=== PATIENT | female | born 1970 | race Caucasian/White ===

== ENCOUNTER 2019-04-24 13:14 | Inpatient (IN) ==
--- NOTE | 2019-04-24 13:54 | Diag Imaging Result Doc PS360 ---
EXAM: CHEST-2 VIEWS 04/24/2019 HISTORY: couging up blood TECHNIQUE: PA and lateral chest COMMENT: There are what appear to be coils present in the area of the superior segment of the right lower lobe. Compared to 05/30/2018 there appear to be more of these coils or the the coils have unwound somewhat since the previous study. They were not present at the time the previous study of 03/19/2018. There is volume loss and opacity near the coils in the posterior portion of the right lower lobe which is similar in appearance to the previous studies. There is some thickening of the minor fissure and blunting of the right costophrenic angle which may be due to fibrosis. The heart size and pulmonary vascularity are within normal limits. The inspiration does not appear to be as optimal as on the previous study of 07/14/2018. 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 The appearance of the coils is somewhat different but otherwise the chest has not changed significantly in appearance since 07/14/2018. Electronically signed by Puma Brown 04/24/2019 1:52 PM
[2019-04-24] MEDS ORDERED: ROCEPHIN 1 GM in NS 50 ML IV ONE (14:14)
[2019-04-24 15:48] LABS: BASO# 0.03 X1000 (0.0-0.2); BASO% 0.4 % (0.0-0.8); EOS# 0.09 X1000 (0.0-0.7); EOS% 1.2 % (0.0-10.0); HEMATOCRIT 31.7 % (37.0-47.0); HEMOGLOBIN 10.2 g/dL (12.0-16.0); MCH 32.4 PG (27-31); MCHC 32.2 g/dL (33-37); MCV 100.6 FL (81-99); MONO% 8.2 % (1.7-9.3); MPV 10.3 FL (7.4-10.4); NEUT# 5.53 X1000 (1.4-6.5); NEUT% 75.2 % (42.2-75.2); PLT 246 X1000 (130-400); RBC 3.15 XMIL (4.2-5.4); RDW 12.7 % (11.5-14.5); WBC 7.35 X1000 (4.8-10.8)
[2019-04-24 16:00] LABS: INR 0.96; PROTIME 12.9 Seconds (11.0-16.0)
[2019-04-24 16:01] LABS: PTT 32.9 Seconds (22.3-41.8)
[2019-04-24 16:04] LABS: AGAP 14; BUN 5 mg/dL (8-22); CALCIUM 8.8 mg/dL (8.8-10.2); CHLORIDE 93 mmol/L (98-107); COSMO 263; CREATININE 0.6 mg/dL (0.5-0.9); ESTIMATED GFR > 60; GLUCOSE 85 mg/dL (70-104); POTASSIUM 4.9 mmol/L (3.5-5.1); SODIUM 133 mmol/L (136-145); TCO2 26 mmol/L (25-35)
[2019-04-24] MEDS ORDERED: MORPHINE IV ONE (16:17)
[2019-04-24] MEDS ORDERED: NS 1,000 ML IV ONE (16:17)
[2019-04-24] MEDS ORDERED: ZOFRAN IV ONE (16:17)
--- NOTE | 2019-04-24 17:04 | Diag Imaging Result Doc PS360 ---
EXAM: CT ANGIOGRM PULMONARY ARTERIES 04/24/2019 HISTORY: h/o of aneurysm and hemoptysis TECHNIQUE: This exam was performed using automated exposure control, adjustment of mA or kV according to patient size, and/or use of iterative reconstruction technique. COMMENT: The current study is compared with the previous contrast examination of 05/02/2018 and the noncontrast study of 06/20/2018. 3-D MIPS were performed. There is considerable metallic artifact from the intravascular coils present in the right lower lobe. There does appear to be a relatively prominent pulmonary arterial branch near the coils. This was also the case on the previous study of 05/02/2018. There is pleural thickening with some calcification posteriorly. There is a small amount of fluid loculated in the posterior costophrenic sulcus which was also present on the previous studies. The degree of consolidation in the superior segment of the lower lobe is slightly worse there is greater opacification of the segmental bronchus in the consolidated portion of the superior segment. There is a nodule in the right middle lobe on image 71 which was not apparently present at the time the previous study. This measures 6 mm in diameter. There are some coarse linear opacities in the posterior costophrenic sulcus of the left lower lobe which have not changed in appearance. Some of the opacities present on 06/20/2018 and the left lung have resolved. There is a groundglass opacity in the anterior left upper lobe on image 40 which was not previously present. The regional skeleton appears to be stable. There is some right paratracheal adenopathy which was also present at the time the previous study of 06/20/2018. This has not apparently changed. IMPRESSION: Worsened consolidation in the superior segment of the right lower lobe. It is unclear if this is a cause or result of the hemoptysis in the history. No evidence of pulmonary emboli is present. New right middle lobe nodule. Questionable pneumonia in the left upper lobe. Electronically signed by Puma Brown 04/24/2019 5:01 PM
[2019-04-24] MEDS ORDERED: ROCEPHIN ONE (18:51)
[2019-04-24] MEDS ORDERED: NS 50 ML ONE (18:51)
--- NOTE | 2019-04-24 19:04 | PROVIDER DOCUMENTATION ---
This chart was entered by Annette Dill Scribe, acting as scribe for Lars Quinones MD. HPI-General Adult - General Chief Complaint: Cough Stated Complaint: COUGHING UP BLOOD Time Seen by Provider: 04/24/19 13:51 Source: patient, family () Allergies/Adverse Reactions: Patient Allergies Allergy/AdvReac Type Severity Reaction Status Date / Time No Known Allergies Allergy Verified 04/24/19 13:22 Home Medications: Home Medication List Medication Instructions Recorded Confirmed Last Taken Type Albuterol Sulfate Inhaler 2 puff INH Q6H PRN PRN #1 inhaler 05/30/18 04/24/19 04/24/19 Rx [Ventolin Hfa] Hydrochlorothiazide 12.5 mg PO DAILY #14 tab 07/14/18 04/24/19 04/24/19 Rx Pantoprazole [Protonix] 40 mg PO DAILY@0700 04/24/19 04/24/19 04/24/19 History Potassium 99 mg PO DAILY 04/24/19 04/24/19 04/24/19 History - History of Present Illness -Gen Adult Nature of Presenting Problems: [id number] presents to the ed with c/o worsening sx of coughing blood and rt lateral lung pain. pt sts has had sx in the past as far back as February [address] peters at the [facility] . pt sts last 3 days sx have worsened and has noted subjective fever as well. pton exam is nontoxic in appearance Location of Pain/Injury: reports: chest (lung pain) Quality of Pain: reports: pressure Severity: reports: moderate Onset/Duration: reports: other (02/2018) Timing: reports: still present, intermittent, getting worse Context/Activities at Onset: reports: light activity Modifying Factors: improves with: nothing. worse with: coughing Associated Symptoms: reports: chest pain (lung pain), cough, fever/chills (subjective), nausea. denies: back/neck pain, shortness of breath, vomiting Similar Symptoms Previously?: Yes Recently seen or treated by another doctor?: Yes (dr peters at [facility]) Review of Systems - Adult - REVIEW OF SYSTEMS - ADULT Constitutional: reports: see HPI, chills, fever Eyes: reports: no symptoms reported Ears, Nose, Mouth & Throat: reports: no symptoms reported Cardiovascular: reports: see HPI, chest pain (lung pain rt side). denies: palpitations, syncope Respiratory: reports: see HPI, cough, excessive sputum production (bloody). denies: shortness of breath, wheezing Gastrointestinal: reports: nausea. denies: abdominal pain, diarrhea, vomiting Genitourinary: reports: no symptoms reported Musculoskeletal: denies: back pain, neck pain Integumentary: reports: no symptoms reported Neurological: reports: no symptoms reported Psychiatric: reports: no symptoms reported Endocrine: reports: no symptoms reported Hematologic/Lymphatic: reports: no symptoms reported Allergic/Immunologic: reports: no symptoms reported All Other Systems: Reviewed and Negative Past History - Adult - PAST MEDICAL HISTORY-ADULT Review of Records: reports: Old Records Reviewed, Nursing Assessment Review, Medications Reviewed, Social history reviewed & non-contributory. Major Childhood Illnesses: reports: denies history Cardiovascular: reports: denies history Respiratory: reports: pneumonia, other (lung issues on rt lung) Gastrointestinal: reports: denies history Obstetrical/Gynecological: reports: denies history Genitourinary: reports: denies history Musculoskeletal: reports: denies history Neurological: reports: denies history Endocrine/Immune: reports: denies history Other Conditions: reports: denies history - PRIOR SURGERIES/PROCEDURES Surgical/Procedure History: reports: hysterectomy, BTL, - IMMUNIZATION STATUS Childhood Immunizations: See Nurse Assessment Flu Vaccine: See Nurse Assessment - FAMILY HISTORY Family History: reviewed, not pertinent - SOCIAL HISTORY Smoking: quit greater than 1 year Substance Use: alcohol Alcohol Use Frequency: occasionally Number of drinks per typical drinking period:: 3-4 drinks Living Situation: family Physical Exam-General - PHYSICAL EXAM-ADULT Initial Vital Signs Reviewed: Yes - CONSTITUTIONAL General Appearance: appears well, alert, no apparent distress, obese - EYES Eyes: PERRL/EOMI, pink conjunctivae - HEAD, EARS, NOSE, MOUTH & THROAT HENMT: moist mucous membranes - NECK Neck: non-tender, full range of motion, supple, normal inspection - RESPIRATORY Respiratory: chest non-tender, lungs clear, normal breath sounds - CARDIOVASCULAR Cardiovascular: normal peripheral pulses, regular rate, rhythm - CHEST (BREASTS) Chest/Breast: deferred - GASTROINTESTINAL (ABDOMEN) Abdominal Exam: normal bowel sounds, non tender, soft - LYMPHATIC Lymphatic: no adenopathy - MUSCULOSKELETAL Back Exam: no CVA tenderness, no vertebral tenderness Extremity: normal range of motion, non-tender, normal gait, normal inspection - SKIN Integumentary: normal color, normal turgor, warm/dry - NEUROLOGIC Neurologic: grossly normal - PSYCHIATRIC Psych/Mental Status: normal mood/affect, normal thought content, normal thought process, oriented x 3 Progress - PLAN OF CARE/RESULTS Progress/Plan/Lab Results: Vital Signs - 8 hr 04/24/19 13:18 Temperature 99.2 F Pulse Rate 87 Respiratory Rate 20 Blood Pressure 189/100 O2 Sat by Pulse Oximetry 100 Orders Category Date Time Status CHEST-2 VIEWS [RAD] Stat Exams 04/24/19 13:23 Completed hopsitalist spoke with rosanne [address] will admit pt to dr mcpherson Result Diagrams: 04/24/19 15:06 04/24/19 15:06 - REASSESSMENT Reassessment #1 Time Reassessed: 15:18 Status: unchanged (dr drake [facility] and pt still presents with sx) - XRAY 1 XRAY: Bilateral XRAY Study: Chest Impression: See EMR Report (EXAM: CHEST-2 VIEWS 04/24/2019 HISTORY: couging up blood TECHNIQUE: PA and lateral chest COMMENT: There are what appear to be coils present in the area of the superior segment of the right lower lobe. Compared to 05/30/2018 there appear to be more of these coils or the the coils have unwound somewhat since the previous study. They were not present at the time the previous study of 03/19/2018. There is volume loss and opacity near the coils in the posterior portion of the right lower lobe which is similar in appearance to the previous studies. There is some thickening of the minor fissure and blunting of the right costophrenic angle which may be due to fibrosis. The heart size and pulmonary vascularity are within normal limits. The inspiration does not appear to be as optimal as on the previous study of 07/14/2018. 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 The appearance of the coils is somewhat different but otherwise the chest has not changed significantly in appearance since 07/14/2018. Electronically signed by Puma Brown 04/24/2019 1:52 PM 04/24/19 1352 Interpreting Physician: Puma Brown MD Dictated Date/Time: 04/24/19 1344 cc: Lars Quinones MD; Jamey Pichardo Jr, MD) - CONSULTS/PCP/HOSPITALIST Notification #1 *Consult/PCP/Hospitalist*: dr peters @ [facility] Time Discussed: 14:22 Reason/Comments: phone consult #2 Consult: dr peters [facility] Time Discussed: 15:13 Reason/Comments: will not accept pt [facility] is on divert #3 Consult: dr vazquez pulmonology Time Discussed: 15:38 Reason/Comments: phone consult Departure - Departure Date of Disposition Decision: 04/24/19 Time of Disposition Decision: 16:18 DIAGNOSIS: Hemoptysis Lung abscess Qualifiers: Pulmonary abscess pneumonia presence: without pneumonia Laterality: unspecified laterality Qualified Code(s): J85.2 - Abscess of lung without pneumonia Disposition: ADMITTED INPATIENT 09 Certified Medical Emergency: Emergent Condition: Stable Referrals and Follow-Ups: Jamey Pichardo Jr, MD [Primary Care Provider] - - Critical Care Note This patient required my direct & personal management of CC.: No Attestation - Physician/ ALLAN Attestation Patient care was provided by Advanced Practice Provider:: No The physician spent face to face time with patient:: Yes Advanced Practice Provider documentation review:: Supervising physician onsite and consulted in the evaluation and care of this patient. The physician did have a face to face encounter with the patient. This chart was documented by the indicated scribe, (Annette Dill Scribe) and accurately reflects the services I performed and decisions made by me, Lars Quinones MD, as attested by the provider's signature.
[2019-04-24] MEDS: DUONEB (A & A) INH SCH ×2 (20:15→23:19)
[2019-04-24] MEDS ORDERED: DUONEB (A & A) INH PRN (20:15)
[2019-04-24] MEDS ORDERED: VANCOMYCIN IV PER PHARMACY MISC SCH (20:15)
--- NOTE | 2019-04-24 21:15 | HISTORY AND PHYSICAL ---
PRIMARY CARE PROVIDER: Gerald Pichardo MD. Pull Worker is in [place]. CHIEF COMPLAINT: Hemoptysis, fever and cough. 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 She had an embolization and coils placed at a [facility] in March 2018. Other past medical history of hypertension, alcohol use, and ex-tobacco use. She reports over the last couple days she was not feeling well. She had been sick in her stomach. She reported a fever of 100.3 yesterday and has been more short of breath over the past 2 to 3 days than usual. She has had some nausea but no vomiting or diarrhea. She reports or around 10 a.m. this morning she started coughing up some blood. She has had some intermittent episodes over this past year. However, they were mixed in with her sputum production. This time they were just malathi red blood, guesstimate about 100 mL in her cup so far, so she can't in the ED to be evaluated because it did not resolve on its own. Workup so far unofficially been benign. It does show coils in the right lower lobe. They appear to be somewhat unwound from previous study. There is no pneumonia, no white count. She did have a low-grade fever at 99. The ED physician did speak with her setter induction heating equipment at [facility]. They did initially accept her. They called hospitalist for admission. They would not speak to them because they were on diversion. He then spoke with Dr. Vargas, who said that we could see the patient here. We will admit her inpatient status and watch her closely overnight in the ICU given the amount of hemoptysis she continues to spit up. We will check a CTA of the chest to rule out any aneurysm or abscess and look for pneumonia. Go ahead and treat her with vancomycin and Zosyn empirically and will hold her blood pressure medicines overnight in case of any emergent bleeding. PAST MEDICAL HISTORY: Per HPI. PAST SURGICAL HISTORY: 1. Coiling and embolization of the right lower lobe secondary to an abscess and aneurysm. 2. section. 3. Bilateral tubal ligation. SOCIAL HISTORY: She quit smoking over a year ago and she drinks occasionally 2 to 3 times await 1 to 2 beers. FAMILY HISTORY: A mother with breast cancer. Father with Alzheimer's dementia and a stroke in the 90s. ALLERGIES: No known drug allergies. HOME MEDICATIONS: 1. Ventolin inhaler 2 puffs inhaled q.6 hours p.r.n. cough or wheezing. 2. Hydrochlorothiazide 12.5 mg p.o. daily. 3. Protonix 40 mg p.o. daily. 4. Potassium 99 mg p.o. daily. REVIEW OF SYSTEMS: Twelve point review of systems completely negative except for those mentioned in HPI. PHYSICAL EXAM: VITAL SIGNS: Temperature is #2, heart rate 87 respirations 20, blood pressure 189/100. O2 is 100% on room air. GENERAL: Ms. Woodard is a 49-year-old female who is sitting on the side of the bed. She appears somewhat anxious but in no acute distress. HEENT: Atraumatic, normocephalic. PERRL. NECK: Is supple. Trachea midline. CV: S1, S2 appreciated. No murmurs, gallops, rubs noted. RESPIRATORY: Lung sounds decreased throughout lung [place]. GI: Soft, nontender, nondistended. Positive bowel sounds four quadrants. EXTREMITIES: Lower extremities negative or edema. NEURO: No focal deficits noted. DIAGNOSTIC DATA: Chest x-ray coils in the right lower lobe presumed to be on the basis of embolism of previously demonstrated aneurysms secondary to lung abscess. The appearance of the coils is somewhat different, but otherwise the chest has not changed significantly in appearance since 07/14/2018. Pending CTA of the chest. LABORATORY DATA: White count 7, hemoglobin 10 and hematocrit 31, platelet count is 246,000. Sodium 133, potassium 4.9, BUN 5, creatinine 0.6, blood glucose is 80. ASSESSMENT AND PLAN: 1. Gross hemoptysis. We will rule the patient out for lung abscess as well as aneurysm with CTA along with any pneumonia. We will empirically start her on IV antibiotics. Will watch her closely in the ICU. Consult Dr. Vargas with pulmonology. Her H H is currently stable. Vital signs are stable. 2. Hypertension. We are going to hold blood pressure medications overnight. 3. 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 Aware. 4. Further recommendations to follow physician evaluation, laboratory and diagnostic data. Dictated by MIGEL Monroe for Uriel Vincent MD cc: Luis Vargas MD Patient with fairly significant hemoptysis. rales in Right lower lung on exam. will get CT scan to try and get a better look. start on empiric antibitics for likely pneumonia vs abscess. if hemoptysis fails to improve then may need transfer to [facility] or [place]. RODRIGUED
[2019-04-24] MEDS ORDERED: VANCOMYCIN 1,700 MG in NS 250 ML IV ONE (21:30)
[2019-04-24] MEDS: TYLENOL PO PRN (22:29)
[2019-04-24] MEDS: TESSALON PO PRN (22:30)
[2019-04-25] MEDS: MORPHINE IV PRN ×4 (01:26→20:55)
[2019-04-25] MEDS: ZOFRAN IV PRN ×3 (01:26→20:55)
[2019-04-25] MEDS: ZOSYN 3.375 GM in NS 50 ML IV SCH ×4 (01:37→20:55)
[2019-04-25] MEDS: DUONEB (A & A) INH SCH ×6 (03:35→22:32)
[2019-04-25] MEDS: TYLENOL PO PRN ×3 (04:59→21:46)
[2019-04-25] MEDS: TESSALON PO PRN ×3 (04:59→20:56)
[2019-04-25 06:54] LABS: BASO# 0.03 X1000 (0.0-0.2); BASO% 0.3 % (0.0-0.8); EOS# 0.01 X1000 (0.0-0.7); EOS% 0.1 % (0.0-10.0); HEMATOCRIT 28.6 % (37.0-47.0); HEMOGLOBIN 9.3 g/dL (12.0-16.0); IMM GRAN# 0.02 X1000 (0.0-0.04); IMM GRAN% 0.2 % (0.0-0.5); LYMPH# 0.96 X1000 (1.2-3.4); LYMPH% 9.1 % (20.5-51.1); MCH 32.7 PG (27-31); MCHC 32.5 g/dL (33-37); MCV 100.7 FL (81-99); MONO# 1.04 X1000 (0.11-0.59); MONO% 9.9 % (1.7-9.3); MPV 10.1 FL (7.4-10.4); NEUT# 8.49 X1000 (1.4-6.5); NEUT% 80.4 % (42.2-75.2); PLT 214 X1000 (130-400); RBC 2.84 XMIL (4.2-5.4); WBC 10.55 X1000 (4.8-10.8)
--- NOTE | 2019-04-25 07:03 | Diag Imaging Result Doc PS360 ---
EXAM: CHEST-PORTABLE HISTORY: Pneumonia TECHNIQUE: Single view COMPARISON: 04/24/2019 FINDINGS: The lungs are well expanded. The heart is not enlarged. The vessels are not distended. There are right basilar infiltrates. No effusion identified. IMPRESSION: Persistent right lower lobe pneumonia. Electronically signed by Amol Fernandez 04/25/2019 7:01 AM
[2019-04-25 07:28] LABS: AGAP 15; ALB/GLOB RATIO 1.1; ALBUMIN 3.4 g/dL (3.5-5.0); ALKALINE PHOSPHATASE 115 U/L (32-104); BUN 6 mg/dL (8-22); CALCIUM 8.4 mg/dL (8.8-10.2); CHLORIDE 94 mmol/L (98-107); COSMO 264; CREATININE 0.7 mg/dL (0.5-0.9); ESTIMATED GFR > 60; GLUCOSE 125 mg/dL (70-104); GOT 42 U/L (10-30); GPT 26 U/L (10-36); POTASSIUM 3.3 mmol/L (3.5-5.1); SODIUM 132 mmol/L (136-145); TCO2 23 mmol/L (25-35); TOTAL BILIRUBIN 0.58 mg/dL (0.20-1.00); TOTAL PROTEIN 6.5 g/dL (6.3-8.3)
[2019-04-25] MEDS: PROTONIX PO SCH (08:51)
[2019-04-25] MEDS: VANCOMYCIN 1,300 MG in NS 250 ML IV SCH ×2 (10:06→21:47)
[2019-04-25 13:10] LABS: HEMATOCRIT 27.6 % (37.0-47.0); HEMOGLOBIN 8.7 g/dL (12.0-16.0)
--- NOTE | 2019-04-25 18:46 | PROGRESS NOTE ---
DATE: 04/25/2019 INTERVAL HISTORY: Patient still with hemoptysis, although it appears to be slowing down in amount and frequency. Still no dyspnea. No vomiting. Afebrile. No new complaints. No other acute events. REVIEW OF SYSTEMS: Twelve-point review of systems negative except as per interval history. LABS: WBCs 10.55, hemoglobin 9.3, hematocrit 28.6, platelets 214. Sodium 132, potassium 3.3, BUN 6, creatinine 0.7 glucose 125. IMAGING: CTA chest with consolidation in the superior segment of the right lower lobe, although unclear if that is the cause or result of her hemoptysis; right middle lobe nodule, possible pneumonia in the left upper lobe as well. Chest x-ray with what appears likely to be right lower lobe pneumonia. VITALS: T-max 100, pulse 85, respirations 18, blood pressure 102/62, O2 saturation 95% on room air. PHYSICAL EXAMINATION: General: No acute distress. Vitals: As above. HEENT: Normocephalic, atraumatic. Moist mucous membranes. No cervical adenopathy. Cardiovascular: Regular rate and rhythm. No murmurs noted. Pulmonary: Breath sounds mildly decreased throughout. Breath sounds mildly decreased throughout. No wheezing. No accessory muscle use or increased work of breathing. Abdomen: Soft, nontender, nondistended. Bowel sounds positive. Extremities: Peripheral pulses intact. No clubbing or cyanosis. Neurologic: Cranial nerves grossly intact. No focal deficits. Psychiatric: Normal mood and affect. Awake, alert, oriented x3. ASSESSMENT AND PLAN: 1. Hemoptysis. Patient still coughing up blood, although it is slowing down a little. Has had a small drop in her hemoglobin and hematocrit. No need for transfusion currently. Continue to monitor closely. If hemoptysis continues, then may end up having transfer to [facility]. We will see if Pulmonology has any other recommendations. 2. Likely pneumonia. CT and x-ray showing a likely pneumonia, so we will continue vancomycin and Zosyn and monitor closely. 3. Hypertension. Blood pressure with good control off of home hydrochlorothiazide, so we will continue to hold that and monitor blood pressure. 4. Gastroesophageal reflux disease. Continue proton pump inhibitor. 5. Chronic obstructive pulmonary disease. No sign of exacerbation at this time. Monitor respiratory status. 6. Hyponatremia, essentially stable. Continue to monitor. 7. Hypokalemia. Will replete and monitor labs.
--- NOTE | 2019-04-25 19:33 | CONSULTATION ---
DATE OF CONSULTATION: 04/25/2019 CHIEF COMPLAINT: Hemoptysis, fever and cough. HISTORY OF PRESENT ILLNESS: This is a 49-year-old female with a past medical history of significant hemoptysis, aneurysm in the middle right lower lobe and lung abscess. She had an embolization and coils placed at [facility] in March of 2018. She states that over the past 2 days, she has not felt well. She reports fever, nausea and shortness of breath. She denies vomiting or diarrhea. Recent CTA impression revealed worsened consolidation in the superior segment of the right lower lobe. It is unclear if this is occult or result of the hemoptysis in the history. No evidence of pulmonary emboli is present. The right middle lobe nodule questionable for pneumonia in the left upper lobe. PAST MEDICAL HISTORY: Please see history of present illness. PAST SURGICAL HISTORY: 1. Coiling and embolization of the right lower lobe secondary to an abscess and aneurysm. 2. section. 3. Bilateral tubal ligation. SOCIAL HISTORY: She quit smoking over a year ago. She states that she drinks occasionally. FAMILY HISTORY: Mother with breast cancer. Father with Alzheimer's/dementia and a stroke. ALLERGIES: No known drug allergies. HOME MEDICATIONS: 1. Potassium 99 mg p.o. daily. 2. Protonix 40 mg p.o. daily. 3. Hydrochlorothiazide 12.5 mg p.o. daily. 4. Albuterol sulfate, Ventolin HFA, 2 puffs q.6h p.r.n.. REVIEW OF SYSTEMS: A 10-point review of systems was conducted and pertinent as listed within the HPI. Otherwise noncontributory. PHYSICAL EXAMINATION: VITAL SIGNS: Temperature 97.7 degrees, pulse rate 78, blood pressure 143/86, oxygen saturation 100% on room air. GENERAL: This is a 49-year-old female sitting up in the bed in no acute distress at the present time. HEENT: Head is atraumatic, normocephalic. Pupils equally round and reactive to light and accommodation. NECK: Supple. Trachea is midline. CARDIOVASCULAR: S1, S2 appreciated. No murmurs, rubs or gallops noted. RESPIRATORY: Decreased entry throughout. Crackles on the right. GI: Soft, nontender, nondistended. Positive bowel sounds in all 4 quadrants. EXTREMITIES: Without edema, clubbing or cyanosis. NEUROLOGICAL: Alert and oriented x 3. Management, [id number] evaluation by Dr. Vargas. MIGEL Blanc, did scribing only. DIAGNOSTIC DATA: Chest x-ray shows coils in the right lower lobe secondary to lung abscess and aneurysm. LABORATORY DATA: White blood cells 10.55, red blood cells 2.84, hemoglobin 8.7, hematocrit 27.6. Sodium 132, potassium 3.3, chloride 94, carbon dioxide 23, BUN 6, creatinine 0.7, glucose 125, calcium 8.4. AST 42, ALT 26, total protein 6.5, albumin 3.4. ASSESSMENT AND PLAN: 1. Hemoptysis, not massive, getting better. Likely pneumonia. Continue antibiotics as prescribed and bronchodilators. 2. Hypertension. Will monitor. 3. 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 Status post embolization with coiling at [facility]. Aware. 4. Plan, if needed, a bronchoscopy, balloon tamponade. Awaiting intervention by Radiology at [place] or [facility]. We hope we do not have to go that far. Finally, [facility] transfer attempted but they did diversion. Time spent was 35 minutes on this patient. Thank you for the courtesy of this consult. Dictated by MIGEL Blanc for Luis Vargas MD cc: MIGEL Blanc MD
[2019-04-26] MEDS: ZOSYN 3.375 GM in NS 50 ML IV SCH ×4 (03:49→21:08)
[2019-04-26] MEDS: TYLENOL PO PRN ×3 (04:30→22:53)
[2019-04-26] MEDS: ZOFRAN IV PRN ×3 (04:30→22:53)
[2019-04-26] MEDS: TESSALON PO PRN ×3 (04:30→22:53)
[2019-04-26] MEDS: MORPHINE IV PRN ×4 (04:30→22:54)
[2019-04-26] MEDS: DUONEB (A & A) INH SCH ×6 (05:38→22:35)
[2019-04-26] MEDS: PROTONIX PO SCH (06:11)
[2019-04-26 06:38] LABS: BASO# 0.02 X1000 (0.0-0.2); BASO% 0.4 % (0.0-0.8); EOS# 0.09 X1000 (0.0-0.7); EOS% 1.8 % (0.0-10.0); HEMATOCRIT 26.8 % (37.0-47.0); HEMOGLOBIN 8.5 g/dL (12.0-16.0); LYMPH# 0.61 X1000 (1.2-3.4); LYMPH% 11.9 % (20.5-51.1); MCH 32.3 PG (27-31); MCHC 31.7 g/dL (33-37); MCV 101.9 FL (81-99); MONO# 0.35 X1000 (0.11-0.59); MONO% 6.8 % (1.7-9.3); MPV 10.4 FL (7.4-10.4); NEUT# 4.06 X1000 (1.4-6.5); NEUT% 79.1 % (42.2-75.2); PLT 194 X1000 (130-400); RBC 2.63 XMIL (4.2-5.4); WBC 5.13 X1000 (4.8-10.8)
[2019-04-26 07:47] LABS: AGAP 9; BUN 4 mg/dL (8-22); CALCIUM 8.5 mg/dL (8.8-10.2); CHLORIDE 99 mmol/L (98-107); COSMO 271; CREATININE 0.7 mg/dL (0.5-0.9); ESTIMATED GFR > 60; GLUCOSE 112 mg/dL (70-104); POTASSIUM 2.9 mmol/L (3.5-5.1); SODIUM 137 mmol/L (136-145); TCO2 29 mmol/L (25-35)
[2019-04-26] MEDS: VANCOMYCIN 1,300 MG in NS 250 ML IV SCH ×2 (08:29→22:54)
[2019-04-26] MEDS ORDERED: POTASSIUM CHLORIDE 60 MEQ in NS 500 ML IV ONE (10:55)
--- NOTE | 2019-04-26 16:10 | PROVIDER PROGRESS NOTE ---
Progress Note Progress Note Dr. Vargas Progress Note/Pulmonary and or critical care We appreciated progress of care, Complications, change in diagnosis, and instructions to patient. Subjective: We note the level of consciousness, bed (chair) position, family presence (if any), level of lethargy, feeling of symptoms, and changes from baseline condition/symptom. The patient is lying in bed on bipap therapy with no acute distress noted. She does have occasional productive cough, but no chest pain/congestion/pressure/tightness. She appears alert today. Objective: Vital Signs: We reviewed EMR current values for Pulse rate, Blood pressure, Pulse rate, respiratory rate and Pulse oximetry. Also noted other values and trends if present (e.g. I/O, CVP). T 98.4, NC 74 , RR 14 , BP 102/61 and SaO2 98 % on RA Physical Examination: General: HEENT: Normocephalic. Trachea midline. Chest: Even and unlabored. Symmetrical excursion. Crackles on right. decreased entry bilateral. CVS: Regular rate and rhythm Abdomen: Soft, non-tender, Normoactive bowel sounds in all 4 quadrants noted. Extremities: No cyanosis. No clubbing. Pitting nails. Neuro: Awake and alert x3. Speech fluent with hoarse voice. Management, face to face evaluation by Dr. Vargas. MIGEL Blanc did scribing only. Labs and Radiology: Reviewed available labs and radiology values available at time of EMR review. Laboratory Results 04/26/19 04/26/19 05:45 05:45 WBC 5.13 RBC 2.63 L Hgb 8.5 L Hct 26.8 L MCV 101.9 H MCH 32.3 H MCHC 31.7 L RDW Std Deviation 13.0 Plt Count 194 MPV 10.4 Immature Gran % (Auto) 0.0 Neut % (Auto) 79.1 H Lymph % (Auto) 11.9 L [place] % (Auto) 6.8 Eos % (Auto) 1.8 Baso % (Auto) 0.4 Immature Gran # (Auto) 0.00 Neut # (Auto) 4.06 Lymph # (Auto) 0.61 L [place] # (Auto) 0.35 Eos # (Auto) 0.09 Baso # (Auto) 0.02 Sodium 137 Potassium 2.9 L Chloride 99 Carbon Dioxide 29 Anion Gap 9 BUN 4 L Creatinine 0.7 Estimated GFR/1.73 m2 > 60 BUN/Creatinine Ratio 6 Glucose 112 H Calculated Osmolality 271 Calcium 8.5 L ASSESSMENT AND PLAN: 1. Hemoptysis, not massive, getting better. Likely pneumonia. Continue antibiotics as prescribed and bronchodilators. 2. Hypertension. Will monitor. 3. 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 Aware. 4. Plan, if needed, a bronchoscopy, balloon tamponade. Awaiting intervention by Radiology at [facility] or [facility]. We hope we do not have to go that far. Finally, [facility] transfer attempted but they did diversion. Time spent was 32 minutes on this patient.
--- NOTE | 2019-04-26 19:19 | PROGRESS NOTE ---
DATE: 04/26/2019 INTERVAL HISTORY: The patient still with some hemoptysis, but decreasing in frequency and amount. Sputum less grossly bloody now and more sputum mixed with blood. Cough is less pronounced and the amount is significantly decreased. She reports improvement in her dyspnea as well. No other acute events overnight. No new complaints. REVIEW OF SYSTEMS: A twelve point review of systems negative except as per interval history. LABS: WBC 5.1, hemoglobin 8.5, hematocrit 26.8, platelets 194,000. Sodium 137, potassium 2.9, BUN 4, creatinine 0.7, glucose 112. VITALS: T-max 98.4, pulse 74, respirations 14, blood pressure 102/61 O2 saturation 98% on room air. PHYSICAL EXAMINATION: General: No acute distress. Vitals: As above. HEENT: Normocephalic, atraumatic. Moist mucous membranes. No cervical adenopathy. Cardiovascular: Regular rate and rhythm. No murmurs noted. Pulmonary: Breath sounds mildly decreased throughout, which is stable. No wheezing, accessory muscle use or increased work of breathing. No rales or rhonchi noted. Abdomen: Soft, nontender, nondistended. Bowel sounds positive. Extremities: Peripheral pulses intact. No clubbing or cyanosis. Neurologic: Cranial nerves grossly intact. No focal deficits. Psychiatric: Normal mood and affect. Awake, alert, and oriented x3. ASSESSMENT/PLAN: 1. Hemoptysis. The patient is still coughing up blood, but decreasing significantly today. Had a pretty good drop in her hemoglobin and hematocrit immediately after discharge, but appears to be stabilizing. Monitor 1 more day, but if this continues to resolve, then may be able to discharge home tomorrow. If it worsens again, then may have to consider transfer to [facility] or [place], but it is looking likely that will not be necessary. 2. It is likely pneumonia. CT and x-ray showing likely pneumonia. On vancomycin and Zosyn with improvement over the last couple days. Continue her antibiotics and monitor. 3. Acute blood loss anemia. Patient with fairly significant hemoptysis and drop in hemoglobin and hematocrit after admission. Has since stabilized along with improvement in her hemoptysis. Does not need transfusion at this time, but we will continue to monitor. 4. Hypertension. Blood pressure with decent control on current regimen. Continue watching it. 5. Gastroesophageal reflux disease. Continue proton pump inhibitor. 6. Chronic obstructive pulmonary disease. No sign of exacerbation at this time. Monitor respiratory status. 7. Hyponatremia, resolved. Continue to monitor labs. 8. Hypokalemia, still pretty low this morning. We will further replete and monitor labs.
[2019-04-27] MEDS: ZOSYN 3.375 GM in NS 50 ML IV SCH ×2 (03:38→08:33)
[2019-04-27] MEDS: DUONEB (A & A) INH SCH ×3 (03:57→11:27)
[2019-04-27] MEDS: PROTONIX PO SCH (06:00)
[2019-04-27] MEDS: TESSALON PO PRN (06:00)
[2019-04-27] MEDS: ZOFRAN IV PRN (06:00)
[2019-04-27] MEDS: MORPHINE IV PRN (06:00)
[2019-04-27] MEDS: TYLENOL PO PRN ×2 (06:00→11:27)
[2019-04-27 06:47] LABS: BASO# 0.02 X1000 (0.0-0.2); BASO% 0.6 % (0.0-0.8); EOS# 0.15 X1000 (0.0-0.7); EOS% 4.5 % (0.0-10.0); HEMATOCRIT 26.5 % (37.0-47.0); HEMOGLOBIN 8.3 g/dL (12.0-16.0); LYMPH# 0.81 X1000 (1.2-3.4); LYMPH% 24.3 % (20.5-51.1); MCH 32.2 PG (27-31); MCHC 31.3 g/dL (33-37); MCV 102.7 FL (81-99); MONO# 0.46 X1000 (0.11-0.59); MONO% 13.8 % (1.7-9.3); MPV 10.6 FL (7.4-10.4); NEUT% 56.8 % (42.2-75.2); PLT 185 X1000 (130-400); RBC 2.58 XMIL (4.2-5.4); WBC 3.34 X1000 (4.8-10.8)
[2019-04-27 07:19] LABS: AGAP 10; BUN 3 mg/dL (8-22); CALCIUM 8.4 mg/dL (8.8-10.2); CHLORIDE 99 mmol/L (98-107); COSMO 268; CREATININE 0.6 mg/dL (0.5-0.9); ESTIMATED GFR > 60; GLUCOSE 87 mg/dL (70-104); POTASSIUM 3.4 mmol/L (3.5-5.1); SODIUM 136 mmol/L (136-145); TCO2 27 mmol/L (25-35)
--- NOTE | 2019-04-27 07:32 | Diag Imaging Result Doc PS360 ---
CHEST-1 VIEW - 04/27/2019 INDICATION: SOB COMPARISON: 04/25/2019 FINDINGS: Stable hazy infiltrate in the right lung base. No new infiltrates. No pneumothorax or significant pleural effusion. Heart size remains grossly normal. IMPRESSION: Stable right basilar infiltrate. No change from prior. Electronically signed by Jamey Simental 04/27/2019 7:29 AM
[2019-04-27] MEDS: POTASSIUM CHLORIDE 20 MEQ/SWI 20 MEQ/100 ML IVPB IV SCH ×2 (09:02→11:05)
[2019-04-27] MEDS ORDERED: VANCOMYCIN 1,500 MG in NS 250 ML IV SCH (09:30)
[2019-04-27 12:13] VITALS: BP 139/86
--- NOTE | 2019-04-27 16:48 | PROVIDER PROGRESS NOTE ---
Progress Note Dr. Vargas Progress Note/Pulmonary and or critical care We appreciated progress of care, Complications, change in diagnosis, and instructions to patient. Subjective: We note the level of consciousness, bed (chair) position, family presence (if any), level of lethargy, feeling of symptoms, and changes from baseline condition/symptom. Patient is standing by the bedside. She is on room air and tolerates well. She states she is feeling better and she is ready to go home. Her boyfriend is at t he bedside. Patient has no complaint at this time. She is instructed to seek immediate medical attention if hemoptysis happens again. Objective: Vital Signs: We reviewed EMR current values for Pulse rate, Blood pressure, Pulse rate, respiratory rate and Pulse oximetry. Also noted other values and trends if present (e.g. I/O, CVP). T 97.3, MI 76, RR 15, BP 139/86 and SaO2 100% on room air. Physical Examination: General: Standing by the bedside with no acute distress noted. HEENT: Normocephalic. Trachea midline. Mucosa pink and moist. Respiratory: Even and unlabored. Symmetrical excursion. Auscultation reveals RLL inspiratory crackles with diminished breathing sounds bilaterally. CVS: Regular rate and rhythm with S1 and S2 appreciated. Abdomen: Soft. Non-tender. Non-distended. Normoactive bowel sounds in all 4 quadrants. Extremities: No pedal edema. No cyanosis. No clubbing. Dorsalis pedis 2+ bilaterally. Neuro: A/O x3. Speech fluent. Follow commands. Labs and Radiology: Reviewed available labs and radiology values available at time of EMR review. Laboratory Results 04/26/19 04/27/19 04/27/19 20:22 05:40 05:40 WBC 3.34 L RBC 2.58 L Hgb 8.3 L Hct 26.5 L MCV 102.7 H MCH 32.2 H MCHC 31.3 L RDW Std Deviation 13.0 Plt Count 185 MPV 10.6 H Immature Gran % (Auto) 0.0 Neut % (Auto) 56.8 Lymph % (Auto) 24.3 [place] % (Auto) 13.8 H Eos % (Auto) 4.5 Baso % (Auto) 0.6 Immature Gran # (Auto) 0.00 Neut # (Auto) 1.90 Lymph # (Auto) 0.81 L [place] # (Auto) 0.46 Eos # (Auto) 0.15 Baso # (Auto) 0.02 Sodium 136 Potassium 3.4 L D Chloride 99 Carbon Dioxide 27 Anion Gap 10 BUN 3 L Creatinine 0.6 Estimated GFR/1.73 m2 > 60 BUN/Creatinine Ratio 5 Glucose 87 Calculated Osmolality 268 Calcium 8.4 L Random Vancomycin 12.60 Assessment: Hemoptysis. Improving. R/O PE by [facility] on 04/24/19. Possible pneumonia with RLL consolidation and MIN groundglass opacity. RML nodule measuring 6 mm in diameter. 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 Acute blood loss anemia. COPD. No acute exacerbation. Prognosis is guarded. Plan: Continue current treatment and supportive care per admitting and other teams on the case. Antibiotic (Vancomycin and Zosyn). Bronchodilators and cough medicine. Appropriate GI and DVT prophylaxis. Discharge planning per Admitting MD. Input was appreciated from Admitting MD and other teams on the case. Evaluation time in minutes: 32 minutes.
--- NOTE | 2019-04-29 12:37 | DISCHARGE SUMMARY ---
ADMISSION DATE: 04/24/2019 DISCHARGE DATE: 04/27/2019 CONSULTS: Pulmonology, Dr. Vargas. DISCHARGE DIAGNOSES: 1. Hemoptysis. 2. Pneumonia. 3. Acute blood loss anemia. 4. Hypertension. 5. Gastroesophageal reflux disease. 6. Chronic obstructive pulmonary disease. 7. Hyponatremia. 8. Hypokalemia. HOSPITAL COURSE: The patient presented initially with fairly significant hemoptysis. The patient had had a lung abscess and aneurysm approximately a year before that required transfer to [facility] and embolization with coil. She did fairly well initially after that, but a few months later began having occasional very small-volume hemoptysis. The day of admission, she had hemoptysis that was significantly increased in amount and frequency, so she came in. She was initially mildly anemic at 10.2, but did trend down to 8.7 before approximately stabilizing. CTA was obtained, which showed consolidation of the superior segment of the right lower lobe, favored to represent pneumonia, as well as possible pneumonia in the left upper lobe. She was treated conservatively with antibiotics with vancomycin and Zosyn. Her hemoptysis gradually decreased in frequency and amount. Eventually, her sputum still contained traces, although it was largely just sputum. Her cough also improved with antibiotics. Her hemoglobin and hematocrit did trend down as above, but never required transfusion. Once the patient's hemoptysis was minimal and her cough improved, she was transitioned to oral antibiotics with Levaquin, and discharged home to follow up with her PCP. She had a mildly low sodium initially that improved, and some mildly low potassium that was repleted. Her other chronic issues were stable during the hospitalization. DISCHARGE VITAL SIGNS: Temperature 97.3 degrees, pulse 76, respirations 15, blood pressure 139/86, O2 saturation 100% on room air. DISCHARGE MEDICATIONS: Potassium as previously prescribed, Protonix 40 mg daily, hydrochlorothiazide 12.5 mg daily, Levaquin 750 mg daily for an additional 8 days, albuterol inhaler as needed. FOLLOWUP AND PLAN: Patient discharging home to follow up with her PCP. Patient instructed to return to care immediately if hemoptysis again worsens. TIME SPENT: Greater than 30 minutes were spent arranging discharge and counseling the patient.
== END 2019-04-27 13:19 | disposition home or self-care (01) | DRG 194 ==
LOC: ED 13:14 → EDIPHOLD 18:42 → 2N 04-25 17:04
PROVIDERS: ATTEND Internal Medicine